=== PATIENT | male | born 1990 | race African-American/Black ===

== ENCOUNTER 2020-12-05 01:54 | Observation (INO) | payer MEDICAID, SELFPAY ==
[2020-12-05] VITALS (27 sets, daily range): BP systolic 103–160; BP diastolic 49–94; PULSE 64–91; RESP 14–27; TEMP 36.3–36.8; O2SAT 90–98; BMI 46.7
--- NOTE | 2020-12-05 02:08 | ECG_ITS ---
Measurements Intervals [place] Rate: 73 P: -7 VA: 154 QRS: 19 QRSD: 92 T: 14 QT: 363 QTc: 401 Interpretive Statements SINUS RHYTHM WITH SINUS ARRHYTHMIA MINIMAL Q WAVES- HIGH LATERAL LEADS BORDERLINE ECG Electronically Signed On 12-05-2020 8:35:33 CDT by Kenneth Bennett D.O.
[2020-12-05 02:13] LABS: Glucose Point of Care 68 (65-105)
[2020-12-05] MEDS: LORazepam INJ (*CRX) 2 MG/ML VIAL (02:32)
--- NOTE | 2020-12-05 02:32 | PC.NURSE ---
Pt. attempted to elope room. [place] [employer] called and escorted pt. in hand cuffs to room 1. Administered IM 2mg ativan R Ventrogluteal and 10mg IM zyprexa L ventrogluteal.
--- NOTE | 2020-12-05 02:40 | ED.PSYCH ---
HPI - Psych General Chief Complaint: Psychiatric Symptoms Stated Complaint: SI/ OD on metformin Time Seen by Provider: 12/05/20 01:55 Source: RN notes reviewed History of Present Illness HPI Narrative: Patient presents to emergency department from home via EMS for suicidal ideation. Patient states he has a history of schizophrenia is been off of his medications for several months. States approximately 30 minutes prior to arrival took an unknown amount of Tylenol and Metformin attempt in his life. Patient states he was just tired of being alive he denies any recent illness denies any chest pain or shortness of breath Related Data Allergies Allergy/AdvReac Type Severity Reaction Status Date / Time No Known Allergies Allergy Verified 12/05/20 02:40 Review of Systems Review of Systems: Narrative: Gen.: Denies fevers or chills ENT: Denies congestion Respiratory: Denies shortness of breath or cough CV: Denies chest pain or palpitations GI: Denies abdominal pain nausea, emesis or diarrhea denies burning, urgency, frequency or hematuria Musculoskeletal: Denies back pain or muscle pain Neuro: Denies numbness, tingling, weakness or focal weakness Skin: Denies rash Psych: See HPI Except as documented, all other systems reviewed and negative [facility] Past Medical History Medical History (Updated 12/05/20 @ 06:11 by Chuy Bentley DO) Schizophrenia Social History Social History (Updated 12/05/20 @ 02:42 by Chuy Bnetley DO) Smoking status: Current every day smoker Exam Narrative: Exam Narrative: APPEARANCE: No acute distress, nontoxic, resting in bed EYES: PERRL HEENT: Normocephalic, atraumatic, OMM RESPIRATORY: No respiratory distress Clear to auscultation bilaterally with no rhonchi wheezing or rales. CARDIOVASCULAR: Regular rate and rhythm without murmurs rubs or gallops. ABDOMINAL: Soft, nontender, nondistended, no rebound or guarding MUSCULOSKELETAl: Moves all extremities. No clubbing, cyanosis or edema. NEURO: Awake and alert x 3. Following commands, speech normal, no focal deficits SKIN:: Warm, dry. No rashes lesions or abrasions PSYCHIATRIC: Positive suicidal ideation, denies homicidal ideation Course Course Emergency Course: Patient getting up out of bed stating that he is leaving attempted to be verbally redirected by staff myself unable to do so patient then tried to be placed back into bed and became aggressive at that time patient walked down the [place] and out into the waiting room [place] police were called patient was convinced to come back to his room but again was aggressive and had to be physically placed back in the bed. Debrox and Ativan given at that time placed in restraints Poison control called recommend to monitor for lactic acidosis and recommends 4-hour Tylenol level recommends holding Acetadote until 4-hour Tylenol level Following medication patient slowly become more calm and cooperative restraints were progressively removed Called and discussed Dr. Hobbs for ICU presentation work-up agrees with admission the ICU request patient be started on D5 normal saline Discussed with [employer] Shaye for Dr. Abbasi presentation work-up agrees with admission at this time Discussed with patient and family results of workup and diagnosis. Discussed need for admission. Patient and family understand and agree to current treatment plan Vital Signs Vital signs: Vital Signs Pulse Rate 86 12/05/20 02:00 Respiratory Rate 14 12/05/20 02:00 Blood Pressure 138/84 12/05/20 02:00 Pulse Oximetry 97 12/05/20 02:00 Temperature 97.6 F 12/05/20 06:49 Pulse Rate 74 12/05/20 06:49 Respiratory Rate 16 12/05/20 06:49 Blood Pressure 160/75 H 12/05/20 06:49 Pulse Oximetry 97 12/05/20 06:49 MDM - Psych Lab Data Result diagrams: 12/05/20 04:13 12/05/20 04:13 Labs: Lab Results 12/05/20 12/05/20 12/05/20 Range/Units 02:10 03:35 04:12 WBC (4.5-
[2020-12-05] MEDS: OLANZapine 10 MG INJ VIAL (02:49)
--- NOTE | 2020-12-05 02:50 | PC.NURSE ---
pt was mad at 0210 because he was going to get his blood drawn. pt states i'm going to leave. pt was told he couldn't. pt proceeded to leaving dragging staff. pt went to the waiting room and police were called. pt requested to be hand cuff by the police. pt was taken back to thew room.
[2020-12-05 03:52] LABS: Glucose Point of Care 60 (65-105)
[2020-12-05] MEDS: DEXTROSE 50% 25 GM/50 ML SYRINGE IV PUSH ×4 (04:18→10:13)
[2020-12-05 04:25] LABS: Basophils Percent Auto 0.3 % (0.2-1.2); Eosinophils Absolute Auto 0.1 K/mm3 (0-0.3); Eosinophils Percent Auto 0.7 % (0-4.4); Hematocrit 44.3 % (42.0-52.0); Hemoglobin 14.6 g/dL (14.0-18.0); Immature Granulocyte Absolute 0.07 K/mm3 (0.00-0.031); Immature Granulocyte Percent A 0.8 % (0-0.5); Lymphocytes Percent Auto 37.4 % (18.3-44.2); Mean Corpuscular Volume 91.2 fl (80-100); Mean Platelet Volume 8.8 fl (7.4-10.4); Monocytes Absolute Auto 0.3 K/mm3 (0.1-0.6); Monocytes Percent Auto 3.9 % (2.6-8.5); Neutrophils Percent Auto 56.9 % (45.5-73.1); Platelet Count Result 331 k/mm3 (150-375); Red Blood Count 4.86 M/mm3 (4.6-6.20); Red Cell Distribution Width 15.5 % (11.5-14.5); White Blood Count 8.8 K/mm3 (4.5-10.0)
[2020-12-05 04:43] LABS: Acetaminophen < 10 ug/mL (10-30); Alanine Aminotransferase 34 U/L (4-50); Albumin Level 4.7 g/dL (3.5-5.1); Alkaline Phosphatase 68 U/L (38-126); Anion Gap 8 mmol/L (8-16); Aspartate Amino Transferase 41 U/L (17-59); Bilirubin,Total 0.3 mg/dL (0.2-1.3); Blood Urea Nitrogen 7 mg/dL (9-20); Calcium 8.8 mg/dL (8.4-10.2); Carbon Dioxide 27 mmol/L (22-30); Chloride 108 mmol/L (98-107); Estimated CRCL calculation 159 ml/min; Estimated Glomerular Filt Rate > 60; Ethanol 188 mg/dL (<10); Glucose 74 mg/dL (75-110); Potassium 3.8 mmol/L (3.4-5.0); Salicylate < 1.0 mg/dL (2-20); Sodium 143 mmol/L (137-145)
[2020-12-05 04:55] LABS: Add Urine Microscopic? NO; Appearance Urine Clear (Clear); Bilirubin Urine Negative (Negative); Blood Urine Negative (Negative); Color Urine Yellow (Yellow); Glucose Urine UA Negative (Negative); Ketones Urine Negative (Negative); Leukocyte Esterase Ur Negative LEU/UL (Negative); Nitrate Urine Negative (Negative); Protein Urine Negative (Negative); Specific Grav Ur 1.009 (1.001-1.035); Urobilinogen Urine Negative mg/dL (<2.0)
[2020-12-05 05:05] LABS: Glucose Point of Care 82 (65-105)
[2020-12-05 05:10] LABS: Amphetamine Screen Urine Negative (Negative); Barbiturate Screen Urine Negative (Negative); Benzodiazepines Screen Urine Negative (Negative); Cannabinoid Screen Urine Positive (Negative); Cocaine Screen Urine Negative (Negative); Methadone Screen Urine Negative (Negative); Opiate Screen Urine Negative (Negative); Phencyclidine Screen Urine Negative (Negative)
--- NOTE | 2020-12-05 05:51 | PC.NURSE ---
pt was removed fully from restrianst at 0530. pt offered food, drink, toileting. pt was given a warm blanket and a pillow
[2020-12-05 06:03] LABS: Glucose Point of Care 59 (65-105)
[2020-12-05] MEDS: DEXTROSE 5%/0.9% SOD CHL 1,000 ML 100 ML IV CONT (06:06)
--- NOTE | 2020-12-05 06:14 | PC.NURSE ---
posion control Erinn called for update on labs and status
[2020-12-05 06:47] LABS: Glucose Point of Care 113 (65-105)
[2020-12-05 06:51] LABS: Acetaminophen < 10 ug/mL (10-30); Salicylate < 1.0 mg/dL (2-20)
[2020-12-05 07:22] LABS: Reflex Lactic Acid Yes or No Add Lactic
--- NOTE | 2020-12-05 07:43 | PM.IMHP ---
H&P: HPI History of Present Illness Date/Time: 12/05/20 07:43 Chief Complaint: Overdose Narrative: This is a 29-year-old male with past medical history significant for schizophrenia, type 2 diabetes mellitus on oral agent on metformin. Patient presented to the emergency stating that he had taking a handful of metformin and Tylenol. poison control was called and patient was placed in the emergency room triage for observation preliminary lab data shows some elevated lactic acid patient subsequently became hypoglycemic. while in emergency room patient was trying to leave in an emergency room had to call police in he was brought back to the emergency he was given Zyprexa and Ativan as a result of this patient is very drowsy but but is easily arousable but dozes back off to sleep. According to medical records in emergency department patient had not been taking his medication for schizophrenia for months. Most of the history I have obtained from medical record as patient is drowsy. [facility] Past Medical History Medical History Schizophrenia Social History Social History Smoking status: Unknown if ever smoked Meds Home Medications and Allergies Home Medications Medication Instructions Recorded Confirmed Type metformin 500 mg PO BID 12/05/20 12/05/20 History Allergies Allergy/AdvReac Type Severity Reaction Status Date / Time No Known Allergies Allergy Verified 12/05/20 02:40 Vital Signs Vital Signs - 24 hr 12/05/20 02:00 12/05/20 02:02 12/05/20 03:21 Temperature 98 F Pulse Rate 86 80 77 Respiratory Rate 14 16 14 Blood Pressure 138/84 139/94 H 107/66 Pulse Oximetry 97 97 93 12/05/20 03:31 12/05/20 03:46 12/05/20 04:16 Temperature Pulse Rate 73 78 75 Respiratory Rate 27 H 21 H 15 Blood Pressure 103/75 115/49 L Pulse Oximetry 95 93 98 12/05/20 04:17 12/05/20 04:30 12/05/20 04:42 Temperature Pulse Rate 71 75 71 Respiratory Rate 19 27 H 25 H Blood Pressure 137/93 H 125/71 Pulse Oximetry 97 95 95 12/05/20 04:45 12/05/20 05:03 12/05/20 05:15 Temperature Pulse Rate 69 72 74 Respiratory Rate 17 16 18 Blood Pressure Pulse Oximetry 97 96 91 12/05/20 05:31 12/05/20 05:32 12/05/20 05:47 Temperature Pulse Rate 82 79 Respiratory Rate 18 18 Blood Pressure 107/68 Pulse Oximetry 91 92 97 12/05/20 05:57 12/05/20 06:00 12/05/20 06:49 Temperature 97.6 F Pulse Rate 82 81 74 Respiratory Rate 19 20 16 Blood Pressure 119/71 160/75 H Pulse Oximetry 92 90 97 12/05/20 07:17 Temperature Pulse Rate 85 Respiratory Rate 16 Blood Pressure 160/76 H Pulse Oximetry 97 Exam Narrative: Exam Narrative: patient is in bed sleeping Const: General: comfortable, no acute distress and other ( drowsy) Nutritional Appearance: other ( morbid obesity) Orientation/consciousness: oriented to person and Other orientation findings (drowsy) Limitations: altered mental status HENMT: Head: normal to inspection, normocephalic and atraumatic Ears: hearing grossly normal bilaterally Face and sinus: normal facial exam Eyes: General: appearance normal, both eyes and all related structures Alignment and Position: alignment normal Periorbital: periorbital findings normal Eyelids: eyelids normal Conjunctivae: conjunctivae normal Sclera: sclerae normal Pupils: Equal, round and reactive pupils present and Pupil size comments bilaterally 2 EOM: EOMs intact bilaterally Neck: Neck: full ROM, no lymphadenopathy and no JVD Thyroid: thyroid normal Lymphatic: no lymphadenopathy noted Resp: Effort & Inspection: normal respiratory effort and able to speak in complete sentences Auscultation: clear to auscultation bilaterally Cardio: Jugular venous distension: no JVD Rate: regular rate Rhythm: regular rhythm Heart sounds: S1 normal heart sound present and S2 normal heart sound present
--- NOTE | 2020-12-05 08:00 | PC.NURSE ---
Patient arrived to ICU 5 with ER staff. Patient drowsy, but responsive to voice. Patient oriented x3, and stated that he was in the hospital because he wanted to harm himself. Patient cooperative at this time. Vital signs note, patient sitter will remain at bedside. Will continue to monitor closely.
[2020-12-05 08:11] LABS: Lactic Acid 2.4 mmol/L (0.7-2.1)
[2020-12-05 08:27] LABS: Glucose Point of Care 63 (65-105)
[2020-12-05 08:27] LABS: Glucose Point of Care 109 (65-105)
[2020-12-05] MEDS: LACTATED RINGERS 1,000 ML 999 ML IV CONT (08:33)
--- NOTE | 2020-12-05 08:40 | PC.NURSE ---
This patient, Rodney Mcdonald, was admitted to Intensive Care Unit-5. Patient/family oriented to hospital policies and general routines including ID bracelet, bed and alarms, visiting hours, pain management, procedures, bathroom and other care routines, personal items, smoking policy, room service/diet, and visiting hours. Information on how to activate the Rapid Response Team has been discussed. Patient/Family are encouraged to report perceived risks to care and to ask questions if they do not understand what they are told or what they should do.
--- NOTE | 2020-12-05 09:03 | WPDCNINT ---
Assessment and Plan Assessment and plan (1) Suicidal deliberate poisoning: Code(s): T65.92XA - Toxic effect of unspecified substance, intentional self-harm, initial encounter Status: Acute Assessment and Plan: Patient took unknown amount of Tylenol and metformin. Initial Tylenol level and LFTs were unremarkable. Poison control was consulted and they recommended rechecking at 4:00 a.m.. For our acetaminophen level was again negative hence acetadote was not started. I will continue to monitor LFTs and recheck LFTs and Tylenol at noon Will start acetadote if any evidence of liver toxicity or elevated Tylenol level Patient otherwise has one-to-one sitter Continue IV fluids to treat lactic acidosis (2) Tylenol overdose: Code(s): T39.1X1A - Poisoning by 4-Aminophenol derivatives, accidental (unintentional), initial encounter Status: Acute (3) Intentional metformin overdose: Code(s): T38.3X2A - Poisoning by insulin and oral hypoglycemic [antidiabetic] drugs, intentional self-harm, initial encounter Status: Acute (4) Lactic acidosis: Code(s): E87.2 - Acidosis Status: Acute Assessment and Plan: Likely secondary to metformin overdose or use Level is improving Will give another IV fluid bolus and continue IV fluids Recheck later in the day (5) Hypoglycemia: Code(s): E16.2 - Hypoglycemia, unspecified Status: Acute Assessment and Plan: Patient was given D50 Change IV fluids to D5 half normal saline and 150 mL/hour Q.1 hour Accu-Cheks (6) Schizophrenia: Code(s): F20.9 - Schizophrenia, unspecified Status: Acute Assessment and Plan: It appears that patient is not any treatment at this time as an outpatient Consult case psychiatry case management manager (7) Encephalopathy acute: Code(s): G93.40 - Encephalopathy, unspecified Status: Acute Assessment and Plan: Patient was alert awake oriented at the time of presentation. Now fairly drowsy likely secondary to Zyprexa and Ativan he has received Continue monitoring Hold for the sedatives at this time Additional Plan DVT prophylaxis -SCDs Nutrition -NPO for now Code Status - Full Code [employer] Consult Note Consult date: 12/05/20 Time Seen: 08:30 HPI: Rodney Mcdonald is a 29 year old male with history of schizophrenia presented to emergency department from home via EMS for suicidal ideation. Patient stated that he has a history of schizophrenia is been off of his medications for several months. He told the ED physician that he approximately 30 minutes prior to arrival took an unknown amount of Tylenol and Metformin in an attempt to and his life. Patient states he was just tired of being alive. He denied any recent illness and denied any other symptoms at that time Later while in the ER he tried to get out of bed and tried to leave and was not able to control verbally by ED staff. Please had to be recall patient was aggressive and physically had to be controlled Patient was given Zyprexa IM and Ativan to control. Poison control was notified and they recommended rechecking Tylenol level at 4 hour. Patient was admitted to ICU for further evaluation management and monitor. When I saw this patient this morning he was fairly drowsy likely secondary to the Zyprexa and Ativan he had received in the ER was unable to provide any history whatsoever. History was obtained from physician sign-out from ED and chart review. Patient was examined Review of Systems Review of Systems: ROS unobtainable: Yes unobtainable due to mental status PMFSH Past Medical History Medical History Schizophrenia Social History Social History Smoking status: Current every day smoker Meds Home Medications and Allergies Home Medications Medication Instructions Recorded Confirmed Type metformin 5
[2020-12-05 09:18] LABS: Glucose Point of Care 76 (65-105)
[2020-12-05] MEDS: DEXTROSE 5%/0.45% SOD CHL 1,000 ML 150 ML IV CONT ×3 (09:34→22:49)
[2020-12-05 10:10] LABS: Glucose Point of Care 60 (65-105)
[2020-12-05 10:31] LABS: Glucose Point of Care 100 (65-105)
[2020-12-05 11:19] LABS: Glucose Point of Care 89 (65-105)
[2020-12-05 12:17] LABS: Alanine Aminotransferase 27 U/L (4-50); Albumin Level 3.5 g/dL (3.5-5.1); Alkaline Phosphatase 52 U/L (38-126); Aspartate Amino Transferase 32 U/L (17-59); Bilirubin,Total 0.1 mg/dL (0.2-1.3)
[2020-12-05 12:18] LABS: Lactic Acid Reflex 1.7 mmol/L (0.7-2.1)
[2020-12-05 12:22] LABS: Acetaminophen < 10 ug/mL (10-30)
--- NOTE | 2020-12-05 12:36 | PC.NURSE ---
At this time, patient remains drowsy but arousable to voice and cooperative with hourly blood glucose monitoring.
[2020-12-05 12:42] LABS: Glucose Point of Care 82 (65-105)
[2020-12-05 13:13] LABS: Glucose Point of Care 84 (65-105)
[2020-12-05 14:42] LABS: Glucose Point of Care 77 (65-105)
--- NOTE | 2020-12-05 14:42 | PM.EVENT ---
Event Note Event Note Event Note: Patient now awake alert oriented x3. His repeat Tylenol level is below 10, lactic acid level is normal and hepatic function panel is normal. Patient states he took 17 pills of metformin but did not take any Tylenol and spat all Tylenol pills out. He was stress and was trying to end his life. He was supposed to be on Abilify and metformin was added to help with weight gain but he has not taking any of those in weeks. He is alert oriented x3 now and denies any complaints. Will continue IV fluids, start regular diet, transfer out of ICU today. Repeat labs ordered for morning. Continue one-to-one observation until seen by psychiatry director of casework department
[2020-12-05 16:12] LABS: Glucose Point of Care 89 (65-105)
[2020-12-05 18:26] LABS: Glucose Point of Care 108 (65-105)
[2020-12-05 19:42] LABS: SARS-CoV-2 RNA PCR Negative
[2020-12-05 21:01] LABS: Glucose Point of Care 103 (65-105)
[2020-12-06] VITALS: BP 125/85; PULSE 58; RESP 14; TEMP 37.1; O2SAT 97
[2020-12-06 04:00] VITALS: BP 142/89; PULSE 48; RESP 20; TEMP 37; O2SAT 97
[2020-12-06 04:14] VITALS: PULSE 39
[2020-12-06 05:03] LABS: Basophils Percent Auto 0.3 % (0.2-1.2); Eosinophils Absolute Auto 0.1 K/mm3 (0-0.3); Eosinophils Percent Auto 1.3 % (0-4.4); Hemoglobin 13.1 g/dL (14.0-18.0); Immature Granulocyte Absolute 0.03 K/mm3 (0.00-0.031); Immature Granulocyte Percent A 0.4 % (0-0.5); Lymphocytes Absolute Auto 2.78 K/mm3 (0.9-3.2); Lymphocytes Percent Auto 35.9 % (18.3-44.2); Mean Corpuscular HGB Conc 32.8 g/dl (32-36); Mean Corpuscular Hemoglobin 29.2 pg (26-34); Mean Corpuscular Volume 89.3 fl (80-100); Monocytes Absolute Auto 0.5 K/mm3 (0.1-0.6); Monocytes Percent Auto 5.8 % (2.6-8.5); Neutrophils Absolute Auto 4.4 K/mm3 (1.3-6.7); Neutrophils Percent Auto 56.3 % (45.5-73.1); Platelet Count Result 273 k/mm3 (150-375); Red Blood Count 4.48 M/mm3 (4.6-6.20); Red Cell Distribution Width 15.3 % (11.5-14.5); White Blood Count 7.7 K/mm3 (4.5-10.0)
[2020-12-06 05:14] LABS: Lactic Acid Reflex 0.9 mmol/L (0.7-2.1)
[2020-12-06 05:16] LABS: Alanine Aminotransferase 24 U/L (4-50); Albumin Level 3.4 g/dL (3.5-5.1); Alkaline Phosphatase 56 U/L (38-126); Anion Gap 0 mmol/L (8-16); Aspartate Amino Transferase 27 U/L (17-59); Bilirubin,Total 0.4 mg/dL (0.2-1.3); Blood Urea Nitrogen 7 mg/dL (9-20); Calcium 8.3 mg/dL (8.4-10.2); Carbon Dioxide 28 mmol/L (22-30); Chloride 107 mmol/L (98-107); Estimated CRCL calculation 178 ml/min; Estimated Glomerular Filt Rate > 60; Glucose 98 mg/dL (75-110); Magnesium 1.5 mg/dL (1.6-2.3); Phosphorus 3.2 mg/dL (2.5-4.5); Potassium 3.5 mmol/L (3.4-5.0); Sodium 135 mmol/L (137-145)
[2020-12-06] MEDS: DEXTROSE 5%/0.45% SOD CHL 1,000 ML 150 ML IV CONT (05:44)
[2020-12-06 05:46] LABS: Glucose Point of Care 91 (65-105)
[2020-12-06 05:47] LABS: Glucose Point of Care 99 (65-105)
[2020-12-06 05:47] LABS: Glucose Point of Care 97 (65-105)
[2020-12-06 05:47] LABS: Glucose Point of Care 95 (65-105)
[2020-12-06 05:47] LABS: Glucose Point of Care 97 (65-105)
[2020-12-06 08:00] VITALS: BP 159/94; PULSE 51; RESP 18; TEMP 36.9; O2SAT 97
[2020-12-06 08:30] LABS: Glucose Point of Care 100 (65-105)
--- NOTE | 2020-12-06 11:09 | PM.IMPN ---
Progress Note: A&P Assessment and Plan (1) Suicidal ideation: Code(s): R45.851 - Suicidal ideations Status: Acute Assessment and Plan: Patient overdosed on his home medications of metformin and Tylenol Denies any suicidal ideation at this time (2) Intentional metformin overdose: Code(s): T38.3X2A - Poisoning by insulin and oral hypoglycemic [antidiabetic] drugs, intentional self-harm, initial encounter Status: Acute Assessment and Plan: Resolved The patient had several hypoglycemic episodes but blood sugars have been stable and within normal limits in the last over 12 hours (3) Tylenol overdose: Code(s): T39.1X1A - Poisoning by 4-Aminophenol derivatives, accidental (unintentional), initial encounter Status: Acute Assessment and Plan: Level was low as well as repeat level no need for acetylcysteine (4) Encephalopathy acute: Code(s): G93.40 - Encephalopathy, unspecified Status: Acute Assessment and Plan: Resolved (5) Hypoglycemia: Code(s): E16.2 - Hypoglycemia, unspecified Status: Acute Assessment and Plan: Resolved patient tolerating p.o. will discontinue IV D5 normal saline (6) Lactic acidosis: Code(s): E87.2 - Acidosis Status: Acute Assessment and Plan: Resolved (7) Schizophrenia: Code(s): F20.9 - Schizophrenia, unspecified Status: Acute Assessment and Plan: Patient has not been on his meds for several months Awaiting evaluation by psych Medically cleared Subjective Date/time seen: 12/06/20 11:09 I feel good want to go home Review of Systems Review of Systems: Narrative: Patient presented to emergency room after he took a bunch of metformin and Tylenol tablets Constitutional: Comments: No fevers no rigors no chills Cardiovascular: Comments: No chest pain no PND no orthopnea Respiratory: Comments: No shortness of breath no cough no sputum production Gastrointestinal: Comments: No nausea no vomiting no diarrhea no constipation no abdominal pain Musculoskeletal: Comments: No muscle ache or joint pain Integumentary/Breasts: Comments: No rashes Neurologic: Comments: No sensorimotor deficit Exam Narrative: Exam Narrative: Laying in bed in no acute distress Const: General: comfortable, no acute distress, well developed, alert and awake Nutritional Appearance: other (Morbid obesity) Orientation/consciousness: patient oriented x3 HENMT: Head: normal to inspection, normocephalic and atraumatic Ears: hearing grossly normal bilaterally Face and sinus: normal facial exam Eyes: General: appearance normal, both eyes and all related structures Pupils: Equal, round and reactive pupils present EOM: EOMs intact bilaterally Neck: Neck: full ROM, no lymphadenopathy and no JVD Thyroid: thyroid normal Lymphatic: no lymphadenopathy noted Resp: Effort & Inspection: normal respiratory effort and able to speak in complete sentences Auscultation: clear to auscultation bilaterally Cardio: Jugular venous distension: no JVD Rate: regular rate Rhythm: regular rhythm Heart sounds: S1 normal heart sound present and S2 normal heart sound present GI: GI Palp: Yes Soft to palpation and Yes No hepatosplenomegaly present : General: Yes deferred Skin: General skin exam: scars (Noted on the left wrist several old is scar of self inflicted cuts) Rashes: no rashes Wounds: no wounds Neuro: General: patient oriented x3 and CN's II-XI intact bilaterally Cranial nerves: Yes CN's II-XII intact bilaterally and Yes Equal, round and reactive pupils present Cognition (Neuro): normal cognition Speech: normal speech Gait exam (Neuro): Normal gait present Motor exam (neuro): 5/5 motor strength present throughout Extrem: General: normal to inspection, full ROM, no joint enlargement and no pedal edema Objective Data Vital Signs Vital Signs: Vital Signs - 24 hr 12/05/20 12:00 12/05/20 14:00 04
[2020-12-06 12:06] LABS: Glucose Point of Care 119 (65-105)
--- NOTE | 2020-12-06 14:24 | PM.DS ---
DS: Admitting Diagnosis Admitting Diagnosis Admitting Diagnosis: (1) Encephalopathy acute: (2) Hypoglycemia: (3) Lactic acidosis: (4) Suicidal deliberate poisoning: (5) Tylenol overdose: (6) Intentional metformin overdose: (7) Schizophrenia: (8) Suicidal ideation: DS: Discharge Diagnosis Discharge Diagnosis (1) Suicidal ideation: Code(s): R45.851 - Suicidal ideations Status: Acute Assessment and Plan: Patient has been evaluated by psychs Patient has made a contract to himself Will be discharged home and follow-up in the outpatient setting (2) Intentional metformin overdose: Code(s): T38.3X2A - Poisoning by insulin and oral hypoglycemic [antidiabetic] drugs, intentional self-harm, initial encounter Status: Acute Assessment and Plan: Resolved (3) Tylenol overdose: Code(s): T39.1X1A - Poisoning by 4-Aminophenol derivatives, accidental (unintentional), initial encounter Status: Acute Assessment and Plan: Patient's levels were low from testing initially and subsequently (4) Encephalopathy acute: Code(s): G93.40 - Encephalopathy, unspecified Status: Acute Assessment and Plan: Resolved (5) Hypoglycemia: Code(s): E16.2 - Hypoglycemia, unspecified Status: Acute Assessment and Plan: Resolved (6) Lactic acidosis: Code(s): E87.2 - Acidosis Status: Acute Assessment and Plan: Resolved (7) Schizophrenia: Code(s): F20.9 - Schizophrenia, unspecified Status: Acute Assessment and Plan: Patient has been off of meds for several months Will follow-up in the outpatient setting DS: Summary Hospital Course Reason for hospitalization: Overdose on metformin Hospital Course: Patient was admitted to the intensive care unit. He was closely monitored for hypoglycemic episodes, was placed on D5 normal saline and had several episodes of hypoglycemia which corrected with D50. Repeat it chemistry panel showed resolution of lactic acid low levels of Tylenol for which he did not require acetylcysteine. Blood sugars remained stable for the last over 12 hours. He was evaluated by crisis intervention and patient may contrast to himself and was discharged home will follow-up in the outpatient setting. Status at Discharge Cognitive/behavioral status at discharge: AAOX3 Functional status at discharge: independent ambulation Overall status at discharge: patient is progressing back to baseline Time Spent with Patient Time attestation: Total time spent providing and/or coordinating discharge services: Time spent: Greater than 30 minutes Exam Narrative: Exam Narrative: Laying in bed in no acute distress. Const: General: comfortable, no acute distress, well developed, alert and awake Nutritional Appearance: other (Morbid obesity) Orientation/consciousness: patient oriented x3 HENMT: Head: normal to inspection, normocephalic and atraumatic Ears: hearing grossly normal bilaterally Face and sinus: normal facial exam Eyes: General: appearance normal, both eyes and all related structures Pupils: Equal, round and reactive pupils present EOM: EOMs intact bilaterally Neck: Neck: full ROM, no lymphadenopathy and no JVD Thyroid: thyroid normal Lymphatic: no lymphadenopathy noted Resp: Effort & Inspection: normal respiratory effort and able to speak in complete sentences Auscultation: clear to auscultation bilaterally Cardio: Jugular venous distension: no JVD Rate: regular rate Rhythm: regular rhythm Heart sounds: S1 normal heart sound present and S2 normal heart sound present GI: GI Palp: Yes Soft to palpation and Yes No hepatosplenomegaly present : General: Yes deferred Skin: Rashes: no rashes Wounds: no wounds Neuro: General: patient oriented x3 and CN's II-XI intact bilaterally Cranial nerves: Yes CN's II-XII intact bilaterally and Yes Equal, ro
== END 2020-12-06 15:27 | disposition home or self-care (01) ==
LOC: ANHED 06:11 → ANHICU 06:27
PROVIDERS: Internal Medicine; Admitting Provider Internal Medicine; Emergency Provider Emergency Medicine; Visit Provider Internal Medicine
DX: T38.3X2A Poisoning by insulin and oral hypoglycemic [antidiabetic] drugs, intentional self-harm, initial encounter (principal); T39.1X2A Poisoning by 4-Aminophenol derivatives, intentional self-harm, initial encounter; T14.91XA Suicide attempt, initial encounter; F20.9 Schizophrenia, unspecified; E11.649 Type 2 diabetes mellitus with hypoglycemia without coma; F17.290 Nicotine dependence, other tobacco product, uncomplicated; Z20.822 Contact with and (suspected) exposure to COVID-19; Z79.84 Long term (current) use of oral hypoglycemic drugs
CPT/HCPCS: 36415; 51701; 80048; 80053; 80076; 80307; 81003; 82948; 83605; 83735; 84100; 84443; 85025; 93005; 96360; 96361; 96374; 96375; 96376; 99285; C9803; G0378; G0379; J2060; J7042; J7120; U0003; U0005